=== PATIENT | male | born 1950 | race Asian ===

== ENCOUNTER 2018-07-03 19:13 | Emergency (ER) | payer OTHER, MEDICAID ==
[~2018-07-03] VITALS: Ht 162.6 cm; Wt 77.6 kg
[2018-07-03 19:17] VITALS: Ht 162.6 cm; Wt 77.6 kg
[2018-07-03 19:52] LABS: BASOPHIL % 0.5 % (0-2); PLATELET COUNT 261 x10^3mcL (130-400); RED CELL DISTRIBUTION WIDTH 13.2 % (11.5-14.5)
[2018-07-03 20:19] LABS: CALCIUM 9.2 mg/dL (8.5-10.1); CARBON DIOXIDE 27.8 mmol/L (21-32); CHLORIDE SERUM 106 mmol/L (98-107); CREATININE SERUM 1.2 mg/dL (0.7-1.3); GFR1 > 60 mL/min; GLUCOSE SERUM 111 mg/dL (74-106); POTASSIUM SERUM 3.2 mmol/L (3.5-5.1); SODIUM SERUM 141 mmol/L (136-145)
[2018-07-03 20:24] LABS: ALBUMIN 3.7 g/dL (3.4-5.0); ALKALINE PHOSPHATASE 81 U/L (46-116); ALT/SGPT 26 U/L (16-63); AST/SGOT 22 U/L (15-37); BILIRUBIN TOTAL 0.4 mg/dL (0.20-1.00); TOTAL PROTEIN, SERUM 7.8 g/dL (6.4-8.2)
[2018-07-03 23:43] VITALS: BP 136/89
== END 2018-07-03 23:43 | disposition short-term general hospital (02) ==
LOC: ED 19:13
PROVIDERS: Emergency Medicine
DX: I63.9 Cerebral infarction, unspecified (principal); G51.0 Bell's palsy; E87.6 Hypokalemia; I10 Essential (primary) hypertension
CPT/HCPCS: 36415; Q0092